=== PATIENT | female | born 1995 | race Caucasian/White ===

== ENCOUNTER 2018-03-31 01:48 | Emergency (ER) | payer SELFPAY, OTHER ==
[2018-03-31] MEDS ORDERED: LIDOCAINE 1% (MDV) 20 ML INJ SC (02:30)
[2018-03-31] MEDS: LIDOCAINE 1% (MDV) 50 ML INJ SC (03:24)
[2018-03-31] MEDS: HYDROCODONE/APAP (5/325) TAB PO (03:27)
[2018-03-31] MEDS: AMPICILLIN/SULB 3 GM/NS (PMX) 100 ML IVPB (03:28)
[2018-03-31] MEDS: DIPHTH/TET/ACEL PERTUSS (ADULT) 0.5 ML VIAL IM* (03:33)
== END 2018-03-31 04:45 | disposition home or self-care (01) ==
LOC: FTE 01:48
DX: S01.511A Laceration without foreign body of lip, initial encounter (principal); W54.0XXA Bitten by dog, initial encounter; Y92.9 Unspecified place or not applicable; Z23 Encounter for immunization
CPT/HCPCS: 12011; 90471; 90715; 96374; 99284-25

== ENCOUNTER 2018-04-02 13:47 | Emergency (ER) | payer SELFPAY | END 2018-04-02 15:10 | disposition home or self-care (01) | LOC: FTE 15:10 | DX: Z48.01 Encounter for change or removal of surgical wound dressing (principal) | CPT/HCPCS: 99281 ==

== ENCOUNTER 2018-04-09 15:25 | Emergency (ER) | payer BC | END 2018-04-09 16:39 | disposition home or self-care (01) | LOC: FTE 15:25 | DX: Z48.01 Encounter for change or removal of surgical wound dressing (principal) | CPT/HCPCS: 99281 ==